=== PATIENT | male | born 1945 ===

== ENCOUNTER 2021-07-10 23:03 | Observation (INO) | payer MEDICARE ==
[2021-07-11] MEDS ORDERED: Sodium Chloride 0.9% 1,000 ML IV ONE ×2 (00:33→04:47)
[2021-07-11 02:06] LABS: BLOOD UREA NITROGEN,BUN 67 mg/dL (7.0-18.0); CHLORIDE,CL 97 mmol/L (98-107); GLUCOSE RANDOM 151 mg/dL (74-106); POTASSIUM,K 4.3 mmol/L (3.5-5.1); SODIUM,NA 135 mmol/L (136-148)
[2021-07-11 06:41] LABS: CARBON DIOXIDE,CO2 25.6 mmol/L (21.0-32.0); POTASSIUM,K 3.7 mmol/L (3.5-5.1)
[2021-07-11] MEDS ORDERED: Ondansetron 4 MG/2 ML SDV IVPUSH PRN (08:18)
[2021-07-11] MEDS ORDERED: Acetaminophen 325 MG Tab PO PRN (08:18)
[2021-07-11] MEDS ORDERED: 50% Dextrose in Water 50 ML Syringe IVPUSH PRN (08:26)
[2021-07-11] MEDS ORDERED: Glucagon,Human Recombinant 1 MG Vial IM PRN (08:26)
[2021-07-11] MEDS ORDERED: Lactated Ringers 1,000 ML IV SCH (08:30)
[2021-07-11] MEDS: Insulin Aspart 100 Units/ML 3 ML Pen SUBCUT SCH ×3 (11:00→18:18)
[2021-07-11] MEDS: cefTRIAXone 1 GM in Sodium Chloride 0.9% 50 ML IV SCH (12:06)
[2021-07-11] MEDS: Azithromycin 500 MG in Sodium Chloride 0.9% 250 ML IV SCH (12:52)
[2021-07-11] MEDS: Lactated Ringers 1,000 ML IV SCH (16:00)
[2021-07-11] MEDS: Carvedilol 12.5 MG Tab PO SCH (21:48)
[2021-07-11] MEDS: Ferrous Sulfate 325 MG Tab PO SCH (21:49)
[2021-07-11] MEDS: Apixaban 5 MG Tab PO SCH (21:49)
[2021-07-11] MEDS: Sodium Bicarbonate 650 MG Tab PO SCH (21:49)
[2021-07-12] MEDS: Lactated Ringers 1,000 ML IV SCH ×2 (03:11→12:56)
[2021-07-12] MEDS: Levothyroxine 75 MCG Tab PO SCH (07:08)
[2021-07-12] MEDS: Pantoprazole 40 MG Tab.CR PO SCH (07:08)
[2021-07-12] MEDS: Insulin Aspart 100 Units/ML 3 ML Pen SUBCUT SCH ×3 (08:00→17:50)
[2021-07-12 08:43] LABS: CARBON DIOXIDE,CO2 27.8 mmol/L (21.0-32.0); POTASSIUM,K 3.1 mmol/L (3.5-5.1)
[2021-07-12] MEDS: Apixaban 5 MG Tab PO SCH ×2 (09:52→21:42)
[2021-07-12] MEDS: Ferrous Sulfate 325 MG Tab PO SCH ×2 (09:52→21:42)
[2021-07-12] MEDS: Cholecalciferol (Vitamin D3) 25 MCG Tab PO SCH (09:52)
[2021-07-12] MEDS: Sodium Bicarbonate 650 MG Tab PO SCH ×2 (09:53→21:43)
[2021-07-12] MEDS: Carvedilol 12.5 MG Tab PO SCH ×2 (09:53→21:43)
[2021-07-12] MEDS: Azithromycin 500 MG in Sodium Chloride 0.9% 250 ML IV SCH (09:56)
[2021-07-12] MEDS ORDERED: Potassium Chloride 20 MEQ Tab.ER PO ONE (10:10)
[2021-07-12] MEDS: cefTRIAXone 1 GM in Sodium Chloride 0.9% 50 ML IV SCH (11:54)
[2021-07-13] MEDS: Pantoprazole 40 MG Tab.CR PO SCH (06:29)
[2021-07-13] MEDS: Levothyroxine 75 MCG Tab PO SCH (06:29)
[2021-07-13] MEDS: Insulin Aspart 100 Units/ML 3 ML Pen SUBCUT SCH ×2 (07:37→17:01)
[2021-07-13 08:57] LABS: CARBON DIOXIDE,CO2 25.3 mmol/L (21.0-32.0); POTASSIUM,K 3.5 mmol/L (3.5-5.1)
[2021-07-13] MEDS: Azithromycin 500 MG in Sodium Chloride 0.9% 250 ML IV SCH (09:26)
[2021-07-13] MEDS: Ferrous Sulfate 325 MG Tab PO SCH (09:28)
[2021-07-13] MEDS: Sodium Bicarbonate 650 MG Tab PO SCH (09:28)
[2021-07-13] MEDS: Cholecalciferol (Vitamin D3) 25 MCG Tab PO SCH (09:29)
[2021-07-13] MEDS: Carvedilol 12.5 MG Tab PO SCH (09:30)
[2021-07-13] MEDS: Apixaban 5 MG Tab PO SCH (09:30)
[2021-07-13] MEDS: cefTRIAXone 1 GM in Sodium Chloride 0.9% 50 ML IV SCH (10:48)
== END 2021-07-13 15:05 | disposition home or self-care (01) ==
LOC: MW.ED 23:03 → MW.MS 07-11 06:47
PROVIDERS: ADMIT Student in an Organized Health Care Education/Training Program; ATTEND Student in an Organized Health Care Education/Training Program
DX: N17.9 Acute kidney failure, unspecified (principal); N18.9 Chronic kidney disease, unspecified; E86.0 Dehydration; I48.91 Unspecified atrial fibrillation; U07.1 COVID-19; E11.22 Type 2 diabetes mellitus with diabetic chronic kidney disease; I12.9 Hypertensive chronic kidney disease with stage 1 through stage 4 chronic kidney disease, or unspecified chronic kidney disease; I25.5 Ischemic cardiomyopathy; E66.9 Obesity, unspecified; E78.5 Hyperlipidemia, unspecified; M10.9 Gout, unspecified; J12.82 Pneumonia due to coronavirus disease 2019; Z79.01 Long term (current) use of anticoagulants; Z79.899 Other long term (current) drug therapy; Z87.891 Personal history of nicotine dependence; Z90.89 Acquired absence of other organs
CPT/HCPCS: 36415; 71045; 74176; 80048; 80053; 81001; 82550; 82947; 83605; 83735; 83880; 84100; 84484; 85025; 86140; 87804; 93005; 96365; 96366; 96367; 96376; 99285; A9270; G0378; J0456; J0696; J1815; J7030; J7050; J7120; U0002